=== PATIENT | male | born 1995 | race Hispanic/Latino ===

== ENCOUNTER 2024-08-08 13:46 | Emergency (ER) | payer SELFPAY ==
[~2024-08-08] VITALS: Ht 180.3 cm; Wt 87.0 kg
[2024-08-08 15:09] VITALS: BP 143/86
[2024-08-08 15:15] VITALS: BP 127/85
[2024-08-08 15:30] VITALS: BP 125/76
[2024-08-08 15:45] VITALS: BP 147/112
[2024-08-08] MEDS ORDERED: ENALAPRILAT 1.25 MG/ML 1ML IV ONE (15:50)
[2024-08-08] MEDS ORDERED: METOPROLOL TARTRATE 25 MG/TAB PO ONE (15:55)
[2024-08-08 16:00] VITALS: BP 123/75
[2024-08-08 16:06] VITALS: BP 147/112
== END 2024-08-08 16:10 | disposition home or self-care (01) | DRG 305 ==
LOC: ED 13:46
DX: I10 Essential (primary) hypertension (principal)